=== PATIENT | female | born 1955 | race Caucasian/White ===

== ENCOUNTER 2016-06-24 19:18 | Emergency (ER) | payer OTHER | END 2016-06-24 21:30 | disposition home or self-care (01) | LOC: ER 19:18 | DX: S82.201A Unspecified fracture of shaft of right tibia, initial encounter for closed fracture (principal); W17.89XA Other fall from one level to another, initial encounter; Y92.019 Unspecified place in single-family (private) house as the place of occurrence of the external cause; F17.210 Nicotine dependence, cigarettes, uncomplicated; Z79.4 Long term (current) use of insulin | CPT/HCPCS: 73552; 73564; 73590; 96372; 96374; 99070; 99283-25; J1170 ==